=== PATIENT | male | born 1970 | race Caucasian/White ===

== ENCOUNTER 2017-09-09 11:28 | Inpatient (IN) | payer OTHER ==
[2017-09-09 12:25] VITALS: BMI 26.9
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
[2017-09-09] MEDS ORDERED: P-EPHED 60MG/TRIPROLIDI 2.5MG TABLET PO PRN (17:17)
[2017-09-09] MEDS ORDERED: NICOTINE POLACRILEX 2 MG GUM BUC PRN (17:17)
[2017-09-09] MEDS ORDERED: MAG HYDROX/AL HYDROX/SIMETH 30 ML UNIT-DOSE CUP PO PRN (17:17)
[2017-09-09] MEDS ORDERED: MAGNESIUM HYDROX 2400MG/30ML ORAL SUSPENSION 30 ML CUP PO PRN (17:17)
[2017-09-09] MEDS ORDERED: ACETAMINOPHEN 325 MG TABLET (FP) PO PRN (17:17)
[2017-09-09] MEDS ORDERED: LOPERAMIDE HCL 2 MG CAPSULE PO PRN (17:17)
[2017-09-09] MEDS ORDERED: MENTHOL/PHENOL 1 EACH UD MM PRN (17:17)
[2017-09-09] MEDS ORDERED: MAGNESIUM CITRATE 300 ML BOTTLE PO PRN (17:17)
[2017-09-09] MEDS ORDERED: guaiFENesin/D-METHORPHAN HB 10 ML UNIT-DOSE CUPS PO PRN (17:17)
[2017-09-09] MEDS: THIAMINE HCL 100 MG TABLET (FP) PO SCH (21:16)
[2017-09-09] MEDS: hydrOXYzine PAMOATE 50 MG CAPSULE (FP) PO PRN (21:16)
[2017-09-09] MEDS: NICOTINE 14 MG/24 HOURS TOPICAL PATCH TD SCH (21:17)
[2017-09-09] MEDS ORDERED: TUBERCULIN PPD 5 TU/0.1ML VIAL ID ONE (22:42)
[2017-09-09] MEDS: IBUPROFEN 400 MG TABLET (FP) PO PRN (22:42)
[2017-09-09 23:34] LABS: URINE APPEARANCE CLEAR; URINE BILIRUBIN NEGATIVE (NEGATIVE); URINE BLOOD NEGATIVE (NEGATIVE); URINE COLOR YELLOW; URINE GLUCOSE (UA) NEGATIVE (NEGATIVE); URINE KETONE NEGATIVE (NEGATIVE); URINE LEUK ESTERASE TRACE (NEGATIVE); URINE NITRITE NEGATIVE (NEGATIVE); URINE PROTEIN NEGATIVE (NEGATIVE)
[2017-09-09 23:53] LABS: URINE HYALINE CAST 2 /lpf; URINE MUCUS MODERATE
[2017-09-10] MEDS ORDERED: METHADONE HCL 40 MG DISPERSABLE TABLET PO SCH (07:30)
[2017-09-10] MEDS ORDERED: METHADONE HCL 10 MG TABLET ONE (08:12)
[2017-09-10] MEDS ORDERED: METHADONE HCL 40 MG DISPERSABLE TABLET ONE (08:13)
[2017-09-10] MEDS: METHADONE 80 MG, METHADONE 20 MG PO SCH (08:17)
[2017-09-10] MEDS: NICOTINE 14 MG/24 HOURS TOPICAL PATCH TD SCH (09:52)
[2017-09-10] MEDS: PRENATAL VITAMINS W/ FOLIC ACID TABLET (FP) PO SCH (09:53)
[2017-09-10 10:12] LABS: CHLORIDE 106 mmol/L (98-107); POTASSIUM 4.6 mmol/L (3.5-5.1); SODIUM 142 mmol/L (136-145)
[2017-09-10 10:19] LABS: HEMATOCRIT 38.7 % (35.4-49); HEMOGLOBIN 12.4 GM/dL (11.7-16.9); MCH 26.9 pg (25.7-33.7); MCHC 32.1 g/dl (32.0-35.9); MEAN CELL VOLUME 83.7 fl (80-96); MEAN PLT VOLUME 8.9 fl (7.5-11.1); PLATELET COUNT 302 K/MM3 (134-434); RBC 4.62 M/mm3 (4.00-5.60); RDW 13.3 % (11.9-15.9); WHITE BLOOD COUNT 10.5 K/mm3 (4.0-10.0)
[2017-09-10 10:27] LABS: ALBUMIN 3.8 g/dl (3.4-5.0); ALK PHOS 98 U/L (45-117); ANION GAP 11 (8-16); BILIRUBIN,TOTAL 0.5 mg/dL (0.2-1.0); BLOOD UREA NITROGEN 15 mg/dL (7-18); CALCIUM 8.6 mg/dL (8.5-10.1); CO2 25 mmol/L (21-32); GLUCOSE,RANDOM 112 mg/dL (74-106); SGOT/AST 23 U/L (15-37); SGPT/ALT 23 U/L (12-78); TOT PROT 7.3 g/dl (6.4-8.2)
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
[2017-09-10] MEDS ORDERED: GABAPENTIN 100 MG CAPSULE (FP) PO ONE (11:45)
[2017-09-10] MEDS ORDERED: FLU VACCINE QUAD 60 MCG/0.5 ML (MDV 17-18) IM ONE (12:00)
[2017-09-10] MEDS: GABAPENTIN 100 MG CAPSULE (FP) PO SCH ×2 (13:40→21:12)
--- NOTE | 2017-09-10 14:08 | EKG ---
Test Reason : Blood Pressure : / mmHG Vent. Rate : 058 BPM Atrial Rate : 058 BPM P-R Int : 150 ms QRS Dur : 100 ms QT Int : 474 ms P-R-T Axes : 074 077 061 degrees QTc Int : 465 ms SINUS BRADYCARDIA OTHERWISE NORMAL ECG NO PREVIOUS ECGS AVAILABLE Confirmed by MD ERNESTINE, JUSTA ([id number]) on 09/10/2017 2:08:22 PM Referred By: Confirmed By:JUSTA SINHA MD
[2017-09-10] MEDS: ARTIFICIAL TEARS (POLYVINYL ALCOHOL 1.4%) OPTH DROPS OU PRN (16:49)
[2017-09-10] MEDS: AMITRIPTYLINE HCL 25 MG TABLET (FP) PO SCH (21:12)
[2017-09-10] MEDS: THIAMINE HCL 100 MG TABLET (FP) PO SCH (21:12)
[2017-09-11] MEDS ORDERED: METHADONE HCL 10 MG TABLET ONE (03:41)
[2017-09-11] MEDS ORDERED: METHADONE HCL 40 MG DISPERSABLE TABLET ONE (03:41)
[2017-09-11] MEDS: METHADONE 80 MG, METHADONE 20 MG PO SCH (06:26)
[2017-09-11] MEDS: GABAPENTIN 100 MG CAPSULE (FP) PO SCH ×3 (06:26→21:15)
[2017-09-11] MEDS: PRENATAL VITAMINS W/ FOLIC ACID TABLET (FP) PO SCH (10:09)
[2017-09-11] MEDS: ARTIFICIAL TEARS (POLYVINYL ALCOHOL 1.4%) OPTH DROPS OU PRN (10:10)
[2017-09-11] MEDS: NICOTINE 14 MG/24 HOURS TOPICAL PATCH TD SCH (10:10)
[2017-09-11] MEDS: AMITRIPTYLINE HCL 25 MG TABLET (FP) PO SCH (21:15)
[2017-09-11] MEDS: THIAMINE HCL 100 MG TABLET (FP) PO SCH (21:15)
[2017-09-11] MEDS: TETRAHYDROZOLINE HCL 1 DROP DROPS OU PRN (21:16)
[2017-09-12] MEDS ORDERED: METHADONE HCL 10 MG TABLET ONE (03:19)
[2017-09-12] MEDS ORDERED: METHADONE HCL 40 MG DISPERSABLE TABLET ONE (03:20)
[2017-09-12] MEDS: GABAPENTIN 100 MG CAPSULE (FP) PO SCH ×3 (06:50→21:16)
[2017-09-12] MEDS: METHADONE 80 MG, METHADONE 20 MG PO SCH (06:50)
[2017-09-12] MEDS: ARTIFICIAL TEARS (POLYVINYL ALCOHOL 1.4%) OPTH DROPS OU PRN ×2 (09:58→21:16)
[2017-09-12] MEDS: PRENATAL VITAMINS W/ FOLIC ACID TABLET (FP) PO SCH (09:58)
[2017-09-12] MEDS: NICOTINE 14 MG/24 HOURS TOPICAL PATCH TD SCH (09:59)
[2017-09-12] MEDS: hydrOXYzine PAMOATE 50 MG CAPSULE (FP) PO PRN ×3 (11:01→21:16)
--- NOTE | 2017-09-12 11:18 | PN ---
Psychiatric Progress Note Vital Signs: Vital Signs Period Temp Pulse Resp BP Sys/Campos Pulse Ox Last 24 Hr 97.8 F-98.0 F 59-67 16-18 120-127/74-80 Date of Session: 09/12/17 Chief Complaint:: "Anxiety" HPI: Patient is addressing opioid, cocaine, nicotine dependence comorbid substance induced sleep, anxiety and mood disorder. ROS: WNL Current Medications: Active Medications Generic Name Dose Route Start Last Admin Trade Name Freq PRN Reason Stop Dose Admin Acetaminophen 650 mg 09/09/17 17:17 Tylenol - PO Q4H PRN FEVER Al Hydroxide/Mg Hydroxide 30 ml 09/09/17 17:17 Mylanta Oral Suspension - PO Q6H PRN DYSPEPSIA Artificial Tears 1 drop 09/10/17 06:50 09/12/17 09:58 Artificial Tears OU 1 drop BID PRN Administration DRY EYES Eucalyptus/Menthol/Phenol/Sorbitol 1 each 09/09/17 17:17 Cepastat Lozenge - MM Q4H PRN SORE THROAT Gabapentin 100 mg 09/10/17 14:00 09/12/17 06:50 Neurontin - PO 100 mg TID JANNETTE Administration Guaifenesin 10 ml 09/09/17 17:17 Robitussin Dm - PO Q6H PRN COUGH Hydroxyzine Pamoate 50 mg 09/09/17 17:17 09/12/17 11:01 Vistaril - PO 50 mg Q4H PRN Administration AGITATION Ibuprofen 400 mg 09/09/17 17:17 09/09/17 22:42 Motrin - PO 400 mg Q6H PRN Administration Pain level 4-6 Loperamide HCl 4 mg 09/09/17 17:17 Imodium - PO Q6H PRN DIARRHEA Magnesium Citrate 300 ml 09/09/17 17:17 Citroma - PO Q48H PRN CONSTIPATION Magnesium Hydroxide 30 ml 09/09/17 17:17 Milk Of Magnesia - PO DAILY PRN CONSTIPATION Methadone HCl 80 mg/ Methadone 100 mg 09/10/17 08:15 09/12/17 06:50 HCl 20 mg PO 100 mg DAILY@0600 JANNETTE Administration Nicotine 14 mg 09/09/17 17:30 09/12/17 09:59 Nicoderm Patch - TD 14 mg DAILY JANNETTE Administration Nicotine Polacrilex 2 mg 09/09/17 17:17 Nicorette Gum - BUC Q2H PRN NICOTINE REPLACEMENT RX Multivit/Folic Acid/Iron 1 tab 09/10/17 10:00 09/12/17 09:58 Vitamins (Sjr) - PO 1 tab DAILY JANNETTE Administration Pseudoephedrine/Triprolidine 1 combo 09/09/17 17:17 Actifed - PO TID PRN NASAL CONGESTION Tetrahydrozoline HCl 1 drop 09/10/17 22:00 09/11/17 21:16 Visine - OU 1 drop BID PRN Administration DRY EYES Thiamine HCl 100 mg 09/09/17 22:00 09/11/17 21:15 Vitamin B1 - PO 100 mg HS JANNETTE Administration Medication(s) Change(s): d/c elavil Current Side Effect: Yes (seadtion from elavil) Lab tests ordered: No Lab tests reviewed: Yes Provider note:: Patient is visible on the floor, attneds groups, he was seen today, requested to d/c elavil due to sedation in am, and he continue to c/o anxiety during the day, patient was recommended to aproach the staff and ask vistaril as neeed every 4 hr. Patient verbalized understanding, psycheducation provided, will continue to monitor progress. Total face to face time:: 15 Mental Status Exam - Mental Status Exam Alert and Oriented to: Time, Place, Person Cognitive Function: Good Patient Appearance: Well Groomed Mood: Depressed, Sad, Anxious Affect: Appropriate, Mood Congruent Patient Behavior: Appropriate, Cooperative Speech Pattern: Appropriate Voice Loudness: Normal Thought Process: Intact, Goal Oriented Hallucinations: Denies Suicidal Ideation: Denies Homicidal Ideation: Denies Insight/Judgement: Fair Sleep: Fair Appetite: Good Muscle strength/Tone: Normal Gait/Station: Normal Psychiatric Treatment Plan - Problem List (1) Opioid dependence Current Visit: Yes (2) Nicotine dependence Current Visit: Yes (3) Benzodiazepine dependence Current Visit: Yes (4) Substance-induced anxiety disorder Current Visit: Yes (5) Substance induced mood disorder Current Visit: Yes (6) Substance-induced sleep disorder Current Visit: Yes (7) Cocaine dependence Current Visit: Yes (8) Methadone maintenance therapy patient Current Visit: Yes
--- NOTE | 2017-09-12 16:34 | PN ---
[facility] Progress Note (SOAP) Subjective: reports chronic lower back pain, denies and numbness, tingling, incontinence or urinary symptoms Objective: AOx3 self directing No signs and Symptoms of distress Skin : intact Neuro: no deficits noted Musc : + pain on Left Lumbar area, Full ROM, ambualting 09/12/17 18:18 Assessment: 09/12/17 16:34 Lumbago without Sciatica 09/12/17 16:35 Plan: Warm Compress Stretching Start flexeril 5mg QD Increase fluids continue to monitor
[2017-09-12] MEDS: CYCLOBENZAPRINE HCL 5 MG TABLET PO SCH (17:41)
[2017-09-12] MEDS: THIAMINE HCL 100 MG TABLET (FP) PO SCH (21:16)
[2017-09-12] MEDS: IBUPROFEN 400 MG TABLET (FP) PO PRN (22:40)
[2017-09-13] MEDS ORDERED: METHADONE HCL 40 MG DISPERSABLE TABLET ONE (03:24)
[2017-09-13] MEDS ORDERED: METHADONE HCL 10 MG TABLET ONE (03:24)
[2017-09-13] MEDS: METHADONE 80 MG, METHADONE 20 MG PO SCH (06:23)
[2017-09-13] MEDS: GABAPENTIN 100 MG CAPSULE (FP) PO SCH ×3 (06:23→21:17)
[2017-09-13] MEDS: NICOTINE 14 MG/24 HOURS TOPICAL PATCH TD SCH (09:58)
[2017-09-13] MEDS: CYCLOBENZAPRINE HCL 5 MG TABLET PO SCH (09:58)
[2017-09-13] MEDS: PRENATAL VITAMINS W/ FOLIC ACID TABLET (FP) PO SCH (09:58)
[2017-09-13] MEDS: TETRAHYDROZOLINE HCL 1 DROP DROPS OU PRN (10:00)
[2017-09-13] MEDS: hydrOXYzine PAMOATE 50 MG CAPSULE (FP) PO PRN ×3 (10:01→21:18)
[2017-09-13] MEDS: THIAMINE HCL 100 MG TABLET (FP) PO SCH (21:17)
[2017-09-13] MEDS: ARTIFICIAL TEARS (POLYVINYL ALCOHOL 1.4%) OPTH DROPS OU PRN (21:19)
[2017-09-14] MEDS ORDERED: METHADONE HCL 10 MG TABLET ONE (03:15)
[2017-09-14] MEDS ORDERED: METHADONE HCL 40 MG DISPERSABLE TABLET ONE (03:15)
[2017-09-14] MEDS: METHADONE 80 MG, METHADONE 20 MG PO SCH (06:39)
[2017-09-14] MEDS: GABAPENTIN 100 MG CAPSULE (FP) PO SCH ×3 (06:40→21:35)
[2017-09-14] MEDS: NICOTINE 14 MG/24 HOURS TOPICAL PATCH TD SCH (10:11)
[2017-09-14] MEDS: PRENATAL VITAMINS W/ FOLIC ACID TABLET (FP) PO SCH (10:11)
[2017-09-14] MEDS: CYCLOBENZAPRINE HCL 5 MG TABLET PO SCH (10:11)
[2017-09-14] MEDS: ARTIFICIAL TEARS (POLYVINYL ALCOHOL 1.4%) OPTH DROPS OU PRN (10:12)
[2017-09-14] MEDS: hydrOXYzine PAMOATE 50 MG CAPSULE (FP) PO PRN ×3 (10:13→20:09)
[2017-09-14] MEDS: TETRAHYDROZOLINE HCL 1 DROP DROPS OU PRN (17:05)
[2017-09-14] MEDS: THIAMINE HCL 100 MG TABLET (FP) PO SCH (21:35)
[2017-09-15] MEDS: hydrOXYzine PAMOATE 50 MG CAPSULE (FP) PO PRN ×4 (00:10→23:35)
[2017-09-15] MEDS ORDERED: METHADONE HCL 10 MG TABLET ONE (03:07)
[2017-09-15] MEDS ORDERED: METHADONE HCL 40 MG DISPERSABLE TABLET ONE (03:08)
[2017-09-15] MEDS: METHADONE 80 MG, METHADONE 20 MG PO SCH (06:26)
[2017-09-15] MEDS: GABAPENTIN 100 MG CAPSULE (FP) PO SCH ×3 (06:26→21:37)
[2017-09-15] MEDS: ARTIFICIAL TEARS (POLYVINYL ALCOHOL 1.4%) OPTH DROPS OU PRN ×2 (06:31→21:38)
[2017-09-15] MEDS: PRENATAL VITAMINS W/ FOLIC ACID TABLET (FP) PO SCH (10:18)
[2017-09-15] MEDS: CYCLOBENZAPRINE HCL 5 MG TABLET PO SCH (10:18)
[2017-09-15] MEDS: NICOTINE 14 MG/24 HOURS TOPICAL PATCH TD SCH (10:19)
[2017-09-15] MEDS: IBUPROFEN 400 MG TABLET (FP) PO PRN (17:56)
[2017-09-15] MEDS: THIAMINE HCL 100 MG TABLET (FP) PO SCH (21:37)
[2017-09-16] MEDS: IBUPROFEN 400 MG TABLET (FP) PO PRN (00:17)
[2017-09-16] MEDS ORDERED: METHADONE HCL 40 MG DISPERSABLE TABLET ONE (03:12)
[2017-09-16] MEDS ORDERED: METHADONE HCL 10 MG TABLET ONE (03:12)
[2017-09-16] MEDS: METHADONE 80 MG, METHADONE 20 MG PO SCH (06:16)
[2017-09-16] MEDS: GABAPENTIN 100 MG CAPSULE (FP) PO SCH ×3 (06:16→21:23)
[2017-09-16] MEDS: ARTIFICIAL TEARS (POLYVINYL ALCOHOL 1.4%) OPTH DROPS OU PRN ×4 (06:19→21:24)
[2017-09-16] MEDS: PRENATAL VITAMINS W/ FOLIC ACID TABLET (FP) PO SCH (10:26)
[2017-09-16] MEDS: CYCLOBENZAPRINE HCL 5 MG TABLET PO SCH (10:26)
[2017-09-16] MEDS: NICOTINE 14 MG/24 HOURS TOPICAL PATCH TD SCH (10:26)
[2017-09-16] MEDS: hydrOXYzine PAMOATE 50 MG CAPSULE (FP) PO PRN ×3 (10:28→20:25)
[2017-09-16] MEDS ORDERED: AMMONIUM LACTATE 12% LOTION 225 GM BOTTLE TP PRN (11:42)
--- NOTE | 2017-09-16 14:17 | PN ---
Psychiatric Progress Note Vital Signs: Vital Signs Period Temp Pulse Resp BP Sys/Campos Pulse Ox Last 24 Hr 97.9 F 62 16-16 120/71 Date of Session: 09/16/17 Chief Complaint:: "insomnai" HPI: Patient is addressing opioid, cocaine, nicotine dependence comorbid substance induced sleep, anxiety and mood disorder. ROS: wnl Current Medications: Active Medications Generic Name Dose Route Start Last Admin Trade Name Freq PRN Reason Stop Dose Admin Acetaminophen 650 mg 09/09/17 17:17 Tylenol - PO Q4H PRN FEVER Al Hydroxide/Mg Hydroxide 30 ml 09/09/17 17:17 09/15/17 12:04 Mylanta Oral Suspension - PO 30 ml Q6H PRN Administration DYSPEPSIA Artificial Tears 1 drop 09/10/17 06:50 09/16/17 10:27 Artificial Tears OU 1 drop BID PRN Administration DRY EYES Cyclobenzaprine HCl 5 mg 09/12/17 17:15 09/16/17 10:26 Cyclobenzaprine Hcl PO 5 mg DAILY JANNETTE Administration Eucalyptus/Menthol/Phenol/Sorbitol 1 each 09/09/17 17:17 Cepastat Lozenge - MM Q4H PRN SORE THROAT Gabapentin 100 mg 09/10/17 14:00 09/16/17 06:16 Neurontin - PO 100 mg TID JANNETTE Administration Guaifenesin 10 ml 09/09/17 17:17 Robitussin Dm - PO Q6H PRN COUGH Hydroxyzine Pamoate 50 mg 09/09/17 17:17 09/16/17 10:28 Vistaril - PO 50 mg Q4H PRN Administration AGITATION Ibuprofen 400 mg 09/09/17 17:17 09/16/17 00:17 Motrin - PO 400 mg Q6H PRN Administration Pain level 4-6 Lactic Acid 1 applic 09/16/17 11:42 Lac-Hydrin 12 TP BID PRN DRY SKIN Loperamide HCl 4 mg 09/09/17 17:17 Imodium - PO Q6H PRN DIARRHEA Magnesium Citrate 300 ml 09/09/17 17:17 Citroma - PO Q48H PRN CONSTIPATION Magnesium Hydroxide 30 ml 09/09/17 17:17 Milk Of Magnesia - PO DAILY PRN CONSTIPATION Methadone HCl 80 mg/ Methadone 100 mg 09/10/17 08:15 09/16/17 06:16 HCl 20 mg PO 100 mg DAILY@0600 JANNETTE Administration Nicotine 14 mg 09/09/17 17:30 09/16/17 10:26 Nicoderm Patch - TD 14 mg DAILY JANNETTE Administration Nicotine Polacrilex 2 mg 09/09/17 17:17 Nicorette Gum - BUC Q2H PRN NICOTINE REPLACEMENT RX Multivit/Folic Acid/Iron 1 tab 09/10/17 10:00 09/16/17 10:26 Vitamins (Sjr) - PO 1 tab DAILY JANNETTE Administration Pseudoephedrine/Triprolidine 1 combo 09/09/17 17:17 Actifed - PO TID PRN NASAL CONGESTION Tetrahydrozoline HCl 1 drop 09/10/17 22:00 09/14/17 17:05 Visine - OU 1 drop BID PRN Administration DRY EYES Thiamine HCl 100 mg 09/09/17 22:00 09/15/17 21:37 Vitamin B1 - PO 100 mg HS JANNETTE Administration Current Side Effect: No Lab tests ordered: No Lab tests reviewed: Yes Provider note:: Patient reports has a difficult time to fall and maintain sleep , next day he fatiqued and tired and unable to functiong well in groups, discussed indications and properties of Belsomra, patient agreed to start, will add Belsomra and continue monitor progress. Total face to face time:: 20 Mental Status Exam - Mental Status Exam Alert and Oriented to: Time, Place, Person Cognitive Function: Good Patient Appearance: Well Groomed Mood: Anxious Affect: Appropriate Patient Behavior: Appropriate, Cooperative Speech Pattern: Clear, Appropriate Voice Loudness: Normal Thought Process: Intact, Goal Oriented Thought Disorder: Not Present Hallucinations: Denies Suicidal Ideation: Denies Homicidal Ideation: Denies Insight/Judgement: Fair Sleep: Poorly, Difficulty falling asleep Appetite: Fair Muscle strength/Tone: Normal Gait/Station: Normal Psychiatric Treatment Plan - Problem List (1) Opioid dependence Current Visit: Yes (2) Nicotine dependence Current Visit: Yes (3) Benzodiazepine dependence Current Visit: Yes (4) Substance-induced anxiety disorder Current Visit: Yes (5) Substance induced mood disorder Current Visit: Yes (6) Substance-induced sleep disorder Current Visit: Yes (7) Cocaine dependence Current Visit: Yes (8) Methadone maintenance therapy patient Current Visit: Yes
[2017-09-16] MEDS: SUVOREXANT 10 MG TABLET PO PRN (21:23)
[2017-09-16] MEDS: THIAMINE HCL 100 MG TABLET (FP) PO SCH (21:23)
[2017-09-17] MEDS ORDERED: METHADONE HCL 40 MG DISPERSABLE TABLET ONE (03:57)
[2017-09-17] MEDS ORDERED: METHADONE HCL 10 MG TABLET ONE (03:57)
[2017-09-17] MEDS: METHADONE 80 MG, METHADONE 20 MG PO SCH (06:11)
[2017-09-17] MEDS: GABAPENTIN 100 MG CAPSULE (FP) PO SCH ×3 (06:12→21:10)
[2017-09-17] MEDS: CYCLOBENZAPRINE HCL 5 MG TABLET PO SCH (10:25)
[2017-09-17] MEDS: NICOTINE 14 MG/24 HOURS TOPICAL PATCH TD SCH (10:25)
[2017-09-17] MEDS: PRENATAL VITAMINS W/ FOLIC ACID TABLET (FP) PO SCH (10:25)
[2017-09-17] MEDS: ARTIFICIAL TEARS (POLYVINYL ALCOHOL 1.4%) OPTH DROPS OU PRN ×2 (10:25→21:10)
[2017-09-17] MEDS: hydrOXYzine PAMOATE 50 MG CAPSULE (FP) PO PRN ×2 (10:28→14:33)
[2017-09-17] MEDS: IBUPROFEN 400 MG TABLET (FP) PO PRN (14:34)
[2017-09-17] MEDS: THIAMINE HCL 100 MG TABLET (FP) PO SCH (21:10)
[2017-09-17] MEDS: SUVOREXANT 10 MG TABLET PO PRN (21:12)
[2017-09-18] MEDS: IBUPROFEN 400 MG TABLET (FP) PO PRN ×2 (01:12→10:04)
[2017-09-18] MEDS: hydrOXYzine PAMOATE 50 MG CAPSULE (FP) PO PRN ×2 (01:12→14:28)
[2017-09-18] MEDS ORDERED: METHADONE HCL 10 MG TABLET ONE (05:47)
[2017-09-18] MEDS ORDERED: METHADONE HCL 40 MG DISPERSABLE TABLET ONE (05:48)
[2017-09-18] MEDS: METHADONE 80 MG, METHADONE 20 MG PO SCH (06:16)
[2017-09-18] MEDS: GABAPENTIN 100 MG CAPSULE (FP) PO SCH ×3 (06:16→21:20)
[2017-09-18] MEDS: ARTIFICIAL TEARS (POLYVINYL ALCOHOL 1.4%) OPTH DROPS OU PRN ×2 (10:03→21:23)
[2017-09-18] MEDS: PRENATAL VITAMINS W/ FOLIC ACID TABLET (FP) PO SCH (10:03)
[2017-09-18] MEDS: CYCLOBENZAPRINE HCL 5 MG TABLET PO SCH (10:04)
[2017-09-18] MEDS: NICOTINE 14 MG/24 HOURS TOPICAL PATCH TD SCH (10:04)
[2017-09-18] MEDS: THIAMINE HCL 100 MG TABLET (FP) PO SCH (21:20)
[2017-09-18] MEDS: SUVOREXANT 10 MG TABLET PO PRN (21:22)
[2017-09-18] MEDS: TOLNAFTATE 1% CREAM 15 GM TUBE TP SCH (21:22)
[2017-09-19] MEDS: hydrOXYzine PAMOATE 50 MG CAPSULE (FP) PO PRN ×2 (02:35→13:56)
[2017-09-19] MEDS ORDERED: METHADONE HCL 40 MG DISPERSABLE TABLET ONE (03:13)
[2017-09-19] MEDS ORDERED: METHADONE HCL 10 MG TABLET ONE (03:13)
[2017-09-19] MEDS: METHADONE 80 MG, METHADONE 20 MG PO SCH (06:14)
[2017-09-19] MEDS: GABAPENTIN 100 MG CAPSULE (FP) PO SCH ×3 (06:14→21:21)
[2017-09-19] MEDS: ARTIFICIAL TEARS (POLYVINYL ALCOHOL 1.4%) OPTH DROPS OU PRN ×2 (10:02→13:57)
[2017-09-19] MEDS: PRENATAL VITAMINS W/ FOLIC ACID TABLET (FP) PO SCH (10:02)
[2017-09-19] MEDS: NICOTINE 14 MG/24 HOURS TOPICAL PATCH TD SCH (10:03)
[2017-09-19] MEDS: TOLNAFTATE 1% CREAM 15 GM TUBE TP SCH ×2 (10:03→21:21)
[2017-09-19] MEDS: CYCLOBENZAPRINE HCL 5 MG TABLET PO SCH (10:05)
[2017-09-19] MEDS: THIAMINE HCL 100 MG TABLET (FP) PO SCH (21:21)
[2017-09-19] MEDS: SUVOREXANT 10 MG TABLET PO PRN (21:22)
[2017-09-20] MEDS: hydrOXYzine PAMOATE 50 MG CAPSULE (FP) PO PRN ×4 (00:10→21:20)
[2017-09-20] MEDS: IBUPROFEN 400 MG TABLET (FP) PO PRN (00:10)
[2017-09-20] MEDS ORDERED: METHADONE HCL 40 MG DISPERSABLE TABLET ONE (03:15)
[2017-09-20] MEDS ORDERED: METHADONE HCL 10 MG TABLET ONE (03:15)
[2017-09-20] MEDS: GABAPENTIN 100 MG CAPSULE (FP) PO SCH ×3 (06:16→21:19)
[2017-09-20] MEDS: METHADONE 80 MG, METHADONE 20 MG PO SCH (06:16)
[2017-09-20] MEDS: NICOTINE 14 MG/24 HOURS TOPICAL PATCH TD SCH (10:06)
[2017-09-20] MEDS: PRENATAL VITAMINS W/ FOLIC ACID TABLET (FP) PO SCH (10:07)
[2017-09-20] MEDS: TOLNAFTATE 1% CREAM 15 GM TUBE TP SCH ×2 (10:07→21:20)
[2017-09-20] MEDS: ARTIFICIAL TEARS (POLYVINYL ALCOHOL 1.4%) OPTH DROPS OU PRN (10:08)
[2017-09-20] MEDS: CYCLOBENZAPRINE HCL 5 MG TABLET PO SCH (10:11)
[2017-09-20] MEDS: THIAMINE HCL 100 MG TABLET (FP) PO SCH (21:19)
[2017-09-20] MEDS: TETRAHYDROZOLINE HCL 1 DROP DROPS OU PRN (21:20)
[2017-09-21] MEDS ORDERED: METHADONE HCL 10 MG TABLET ONE (05:06)
[2017-09-21] MEDS ORDERED: METHADONE HCL 40 MG DISPERSABLE TABLET ONE (05:06)
[2017-09-21] MEDS: GABAPENTIN 100 MG CAPSULE (FP) PO SCH ×3 (06:16→21:13)
[2017-09-21] MEDS: METHADONE 80 MG, METHADONE 20 MG PO SCH (06:16)
[2017-09-21] MEDS: IBUPROFEN 400 MG TABLET (FP) PO PRN (07:39)
[2017-09-21] MEDS: ARTIFICIAL TEARS (POLYVINYL ALCOHOL 1.4%) OPTH DROPS OU PRN (07:44)
[2017-09-21] MEDS: TETRAHYDROZOLINE HCL 1 DROP DROPS OU PRN ×2 (10:04→21:13)
[2017-09-21] MEDS: PRENATAL VITAMINS W/ FOLIC ACID TABLET (FP) PO SCH (10:05)
[2017-09-21] MEDS: NICOTINE 14 MG/24 HOURS TOPICAL PATCH TD SCH (10:05)
[2017-09-21] MEDS: TOLNAFTATE 1% CREAM 15 GM TUBE TP SCH ×2 (10:06→21:52)
[2017-09-21] MEDS: hydrOXYzine PAMOATE 50 MG CAPSULE (FP) PO PRN ×2 (10:08→21:15)
[2017-09-21] MEDS: CYCLOBENZAPRINE HCL 5 MG TABLET PO SCH (10:10)
[2017-09-21] MEDS: THIAMINE HCL 100 MG TABLET (FP) PO SCH (21:13)
[2017-09-22] MEDS ORDERED: METHADONE HCL 10 MG TABLET ONE (05:29)
[2017-09-22] MEDS ORDERED: METHADONE HCL 40 MG DISPERSABLE TABLET ONE (05:29)
[2017-09-22] MEDS: METHADONE 80 MG, METHADONE 20 MG PO SCH (06:10)
[2017-09-22] MEDS: GABAPENTIN 100 MG CAPSULE (FP) PO SCH ×3 (06:10→21:15)
[2017-09-22] MEDS: NICOTINE 14 MG/24 HOURS TOPICAL PATCH TD SCH (09:37)
[2017-09-22] MEDS: CYCLOBENZAPRINE HCL 5 MG TABLET PO SCH (09:37)
[2017-09-22] MEDS: PRENATAL VITAMINS W/ FOLIC ACID TABLET (FP) PO SCH (09:37)
[2017-09-22] MEDS: IBUPROFEN 400 MG TABLET (FP) PO PRN (09:38)
[2017-09-22] MEDS: TOLNAFTATE 1% CREAM 15 GM TUBE TP SCH ×2 (09:39→21:17)
[2017-09-22] MEDS: hydrOXYzine PAMOATE 50 MG CAPSULE (FP) PO PRN ×2 (14:00→21:16)
[2017-09-22] MEDS: THIAMINE HCL 100 MG TABLET (FP) PO SCH (21:15)
[2017-09-22] MEDS: ARTIFICIAL TEARS (POLYVINYL ALCOHOL 1.4%) OPTH DROPS OU PRN (21:17)
[2017-09-23] MEDS ORDERED: METHADONE HCL 10 MG TABLET ONE (03:11)
[2017-09-23] MEDS ORDERED: METHADONE HCL 40 MG DISPERSABLE TABLET ONE (03:12)
[2017-09-23] MEDS: GABAPENTIN 100 MG CAPSULE (FP) PO SCH (06:23)
[2017-09-23] MEDS: METHADONE 80 MG, METHADONE 20 MG PO SCH (06:23)
[2017-09-23 06:49] VITALS: BP 121/75; PULSE 65; TEMP 97.9
[2017-09-23] MEDS: TOLNAFTATE 1% CREAM 15 GM TUBE TP SCH (10:12)
[2017-09-23] MEDS: NICOTINE 14 MG/24 HOURS TOPICAL PATCH TD SCH (10:12)
[2017-09-23] MEDS: PRENATAL VITAMINS W/ FOLIC ACID TABLET (FP) PO SCH (10:12)
[2017-09-23] MEDS: ARTIFICIAL TEARS (POLYVINYL ALCOHOL 1.4%) OPTH DROPS OU PRN (10:13)
[2017-09-23] MEDS: CYCLOBENZAPRINE HCL 5 MG TABLET PO SCH (10:15)
--- NOTE | 2017-09-23 10:46 | PN ---
Psychiatric Progress Note Vital Signs: Vital Signs Period Temp Pulse Resp BP Sys/Campos Pulse Ox Last 24 Hr 97.9 F 65 16-16 121/75 Date of Session: 09/23/17 Chief Complaint:: discharge visit HPI: Patient has addressed opioid, benzo, nicotine dependence comorbid substance induced sleep, anxiety and mood disorder. ROS: WNL Current Medications: Active Medications Generic Name Dose Route Start Last Admin Trade Name Freq PRN Reason Stop Dose Admin Acetaminophen 650 mg 09/09/17 17:17 Tylenol - PO Q4H PRN FEVER Al Hydroxide/Mg Hydroxide 30 ml 09/09/17 17:17 09/15/17 12:04 Mylanta Oral Suspension - PO 30 ml Q6H PRN Administration DYSPEPSIA Artificial Tears 1 drop 09/10/17 06:50 09/23/17 10:13 Artificial Tears OU 1 drop BID PRN Administration DRY EYES Cyclobenzaprine HCl 5 mg 09/12/17 17:15 09/23/17 10:15 Cyclobenzaprine Hcl PO 5 mg DAILY JANNETTE Administration Eucalyptus/Menthol/Phenol/Sorbitol 1 each 09/09/17 17:17 Cepastat Lozenge - MM Q4H PRN SORE THROAT Gabapentin 100 mg 09/10/17 14:00 09/23/17 06:23 Neurontin - PO 100 mg TID JANNETTE Administration Guaifenesin 10 ml 09/09/17 17:17 Robitussin Dm - PO Q6H PRN COUGH Hydroxyzine Pamoate 50 mg 09/09/17 17:17 09/22/17 21:16 Vistaril - PO 50 mg Q4H PRN Administration AGITATION Ibuprofen 400 mg 09/09/17 17:17 09/22/17 09:38 Motrin - PO 400 mg Q6H PRN Administration Pain level 4-6 Lactic Acid 1 applic 09/16/17 11:42 Lac-Hydrin 12 TP BID PRN DRY SKIN Loperamide HCl 4 mg 09/09/17 17:17 Imodium - PO Q6H PRN DIARRHEA Magnesium Citrate 300 ml 09/09/17 17:17 Citroma - PO Q48H PRN CONSTIPATION Magnesium Hydroxide 30 ml 09/09/17 17:17 Milk Of Magnesia - PO DAILY PRN CONSTIPATION Methadone HCl 80 mg/ Methadone 100 mg 09/18/17 06:00 09/23/17 06:23 HCl 20 mg PO 02/13/18 05:59 100 mg DAILY@0600 JANNETTE Administration Nicotine 14 mg 09/09/17 17:30 09/23/17 10:12 Nicoderm Patch - TD 14 mg DAILY JANNETTE Administration Nicotine Polacrilex 2 mg 09/09/17 17:17 Nicorette Gum - BUC Q2H PRN NICOTINE REPLACEMENT RX Multivit/Folic Acid/Iron 1 tab 09/10/17 10:00 09/23/17 10:12 Vitamins (Sjr) - PO 1 tab DAILY JANNETTE Administration Pseudoephedrine/Triprolidine 1 combo 09/09/17 17:17 Actifed - PO TID PRN NASAL CONGESTION Tetrahydrozoline HCl 1 drop 09/10/17 22:00 09/21/17 21:13 Visine - OU 1 drop BID PRN Administration DRY EYES Thiamine HCl 100 mg 09/09/17 22:00 09/22/17 21:15 Vitamin B1 - PO 100 mg HS JANNETTE Administration Tolnaftate 1 applic 09/18/17 22:00 09/23/17 10:12 Tinactin 1% Cream - TP 1 applic BID JANNETTE Administration Current Side Effect: No Lab tests ordered: No Lab tests reviewed: Yes Provider note:: Patient has completed today his treatment and met his goals, will continue to address his issues at [facility]. Patient reports has been feeling much better, he is less anxious, his sleeps better. Patient focused on importance to continue maintain abstinence, utilizaion all supports available to porevent relapses, patient was enouraged to use alterantive ways to prevent relapses, script for Gabapentin for 30 days e-transferred to [place] pharmacy, he is stable for discharge today. Total face to face time:: 20 Mental Status Exam - Mental Status Exam Alert and Oriented to: Time, Place, Person Cognitive Function: Good Patient Appearance: Well Groomed Mood: Hopeful Affect: Appropriate Patient Behavior: Appropriate, Cooperative Speech Pattern: Clear, Appropriate Voice Loudness: Normal Thought Process: Intact Thought Disorder: Not Present Hallucinations: Denies Suicidal Ideation: Denies Homicidal Ideation: Denies Insight/Judgement: Fair Sleep: Well Appetite: Good Muscle strength/Tone: Normal Gait/Station: Normal
== END 2017-09-23 11:00 | disposition home or self-care (01) | DRG 772 ==
LOC: YASAS 11:28 → Y5N 18:08
PROVIDERS: ADMIT Psychiatry & Neurology Psychiatry; ATTEND Psychiatry & Neurology Psychiatry
PROC: HZ42ZZZ Group Counseling for Substance Abuse Treatment, Cognitive-Behavioral (ICD-10-PCS; principal; 2017-09-09)
DX: F11.20 Opioid dependence, uncomplicated (principal); F13.20 Sedative, hypnotic or anxiolytic dependence, uncomplicated; F14.20 Cocaine dependence, uncomplicated; F17.210 Nicotine dependence, cigarettes, uncomplicated; F19.24 Other psychoactive substance dependence with psychoactive substance-induced mood disorder; F19.280 Other psychoactive substance dependence with psychoactive substance-induced anxiety disorder; F19.282 Other psychoactive substance dependence with psychoactive substance-induced sleep disorder; F32.9 Major depressive disorder, single episode, unspecified; M54.5 Low back pain; R76.11 Nonspecific reaction to tuberculin skin test without active tuberculosis
CPT/HCPCS: 36415; 71046-TC-FY; 80053; 81003; 81015; 85027; 86593; 87389; 90688; 93005; 93010

== ENCOUNTER 2021-05-05 11:59 | Inpatient (IN) | payer OTHER ==
[2021-05-05 14:07] VITALS: BMI 25.7
[2021-05-05] MEDS ORDERED: ONDANSETRON *ODT* 4 MG TABLET SL PRN (14:44)
[2021-05-05] MEDS ORDERED: IBUPROFEN 400 MG TABLET (FP) PO PRN (14:44)
[2021-05-05] MEDS ORDERED: MENTHOL/PHENOL 1 EACH UD MM PRN (14:44)
[2021-05-05] MEDS ORDERED: NICOTINE 10 MG CARTRIDGE (INHALER) IH PRN (14:44)
[2021-05-05] MEDS ORDERED: ACETAMINOPHEN 325 MG TABLET (FP) PO PRN ×2 (14:44)
[2021-05-05] MEDS ORDERED: NICOTINE 14 MG/24 HOURS TOPICAL PATCH TD PRN (14:44)
[2021-05-05] MEDS ORDERED: MAG HYDROX/AL HYDROX/SIMETH 30 ML UNIT-DOSE CUP PO PRN (14:44)
[2021-05-05] MEDS ORDERED: LORazepam 1 MG TABLET PO PRN (14:44)
[2021-05-05] MEDS ORDERED: MAGNESIUM CITRATE 300 ML BOTTLE PO PRN (14:44)
[2021-05-05] MEDS ORDERED: MAGNESIUM HYDROX 2400MG/30ML ORAL SUSPENSION 30 ML CUP PO PRN (14:44)
[2021-05-05] MEDS ORDERED: BISMUTH SUBSALICYLATE 524 MG/30 ML PO PRN (14:44)
[2021-05-05] MEDS: hydrOXYzine PAMOATE 25 MG CAPSULE (FP) PO SCH ×2 (17:41→22:27)
[2021-05-05] MEDS: LORazepam 2 MG TABLET PO SCH (22:27)
[2021-05-05] MEDS: MELATONIN 5 MG TABLETS PO SCH (22:27)
[2021-05-05] MEDS: THIAMINE HCL 100 MG TABLET (FP) PO SCH (22:27)
[2021-05-06] MEDS: LORazepam 2 MG TABLET PO SCH ×4 (05:24→23:16)
[2021-05-06] MEDS: hydrOXYzine PAMOATE 25 MG CAPSULE (FP) PO SCH (05:24)
[2021-05-06] MEDS ORDERED: methaDONE HCL 10 MG TABLET PO SCH (09:15)
[2021-05-06] MEDS ORDERED: methaDONE HCL 10 MG TABLET ONE (09:52)
[2021-05-06] MEDS ORDERED: methaDONE HCL 40 MG DISPERSABLE TABLET ONE (09:53)
[2021-05-06] MEDS: methaDONE 80 MG, methaDONE 20 MG PO SCH (10:29)
[2021-05-06] MEDS: METHOCARBAMOL 500 MG TABLET PO PRN (10:31)
[2021-05-06 14:39] LABS: HEMATOCRIT 38.9 % (35.4-49); HEMOGLOBIN 12.8 GM/dL (11.7-16.9); MCH 28.4 pg (25.7-33.7); MCHC 32.8 g/dl (32.0-35.9); MEAN CELL VOLUME 86.8 fl (80-96); PLATELET COUNT 320 10^3/uL (134-434); RBC 4.49 M/mm3 (4.00-5.60); RDW 13.8 % (11.9-15.9); WHITE BLOOD COUNT 7.8 K/mm3 (4.0-10.0)
[2021-05-06 14:47] LABS: ALBUMIN 2.9 g/dl (3.4-5.0); BLOOD UREA NITROGEN 16.3 mg/dL (7-18); CALCIUM 8.7 mg/dL (8.5-10.1)
[2021-05-06 14:50] LABS: CREATININE 0.9 mg/dL (0.55-1.3)
[2021-05-06 14:52] LABS: BILIRUBIN,TOTAL 0.6 mg/dL (0.2-1); TOT PROT 6.1 g/dl (6.4-8.2)
[2021-05-06] MEDS: MELATONIN 5 MG TABLETS PO SCH (23:16)
[2021-05-06] MEDS: THIAMINE HCL 100 MG TABLET (FP) PO SCH (23:16)
[2021-05-07] MEDS ORDERED: methaDONE HCL 40 MG DISPERSABLE TABLET ONE (04:40)
[2021-05-07] MEDS ORDERED: methaDONE HCL 10 MG TABLET ONE (04:40)
[2021-05-07] MEDS: methaDONE 80 MG, methaDONE 20 MG PO SCH (05:21)
[2021-05-07] MEDS: LORazepam 1 MG TABLET PO SCH ×4 (05:22→22:51)
[2021-05-07] MEDS: METHOCARBAMOL 500 MG TABLET PO PRN (16:58)
[2021-05-07] MEDS: THIAMINE HCL 100 MG TABLET (FP) PO SCH (22:51)
[2021-05-07] MEDS: MELATONIN 5 MG TABLETS PO SCH (22:51)
[2021-05-08] MEDS ORDERED: LORazepam 0.5 MG TABLET PO PRN
[2021-05-08] MEDS: LORazepam 0.5 MG TABLET PO SCH ×4 (05:41→22:30)
[2021-05-08] MEDS: methaDONE 80 MG, methaDONE 20 MG PO SCH (05:43)
[2021-05-08] MEDS ORDERED: methaDONE HCL 10 MG TABLET ONE (05:43)
[2021-05-08] MEDS ORDERED: methaDONE HCL 40 MG DISPERSABLE TABLET ONE (05:43)
[2021-05-08] MEDS: CEPHALEXIN MONOHYDRATE 500 MG CAPSULE (UD) PO SCH ×3 (13:23→23:01)
[2021-05-08] MEDS: THIAMINE HCL 100 MG TABLET (FP) PO SCH (22:30)
[2021-05-08] MEDS: MELATONIN 5 MG TABLETS PO SCH (22:30)
[2021-05-08] MEDS: METHOCARBAMOL 500 MG TABLET PO PRN (22:31)
[2021-05-09] MEDS ORDERED: methaDONE HCL 10 MG TABLET ONE (04:47)
[2021-05-09] MEDS ORDERED: methaDONE HCL 40 MG DISPERSABLE TABLET ONE (04:48)
[2021-05-09] MEDS ORDERED: LORazepam 0.5 MG TABLET PO ONE (05:00)
[2021-05-09] MEDS: CEPHALEXIN MONOHYDRATE 500 MG CAPSULE (UD) PO SCH (05:28)
[2021-05-09] MEDS: methaDONE 80 MG, methaDONE 20 MG PO SCH (05:28)
[2021-05-09 08:43] VITALS: BP 124/70; PULSE 82; TEMP 96.9
== END 2021-05-09 09:54 | disposition other institution (70) | DRG 773 ==
LOC: YASAS 11:59 → Y3N 16:07
PROVIDERS: ADMIT Allergy & Immunology; ATTEND Allergy & Immunology
PROC: HZ2ZZZZ Detoxification Services for Substance Abuse Treatment (ICD-10-PCS; principal; 2021-05-05)
DX: F10.230 Alcohol dependence with withdrawal, uncomplicated (principal); F11.20 Opioid dependence, uncomplicated; F13.20 Sedative, hypnotic or anxiolytic dependence, uncomplicated; F14.20 Cocaine dependence, uncomplicated; F12.20 Cannabis dependence, uncomplicated; F17.210 Nicotine dependence, cigarettes, uncomplicated; F19.24 Other psychoactive substance dependence with psychoactive substance-induced mood disorder; F41.9 Anxiety disorder, unspecified; G47.00 Insomnia, unspecified; L03.116 Cellulitis of left lower limb; M54.5 Low back pain; G89.29 Other chronic pain; Z63.4 Disappearance and death of family member; Z86.11 Personal history of tuberculosis; Z99.89 Dependence on other enabling machines and devices; Z56.0 Unemployment, unspecified; Z59.0 Homelessness
CPT/HCPCS: 36415; 71046-TC-FY; 80053; 82962; 85027; 86780; C9803; U0003; U0005

== ENCOUNTER 2021-05-10 15:09 | Inpatient (IN) | payer OTHER ==
[2021-05-10 17:20] VITALS: BMI 25.8
[2021-05-10] MEDS ORDERED: ACETAMINOPHEN 325 MG TABLET (FP) PO PRN (20:26)
[2021-05-10] MEDS ORDERED: MAGNESIUM HYDROX 2400MG/30ML ORAL SUSPENSION 30 ML CUP PO PRN (20:26)
[2021-05-10] MEDS ORDERED: guaiFENesin 200 MG/10 ML 10 ML UNIT-DOSE CUPS PO PRN (20:26)
[2021-05-10] MEDS ORDERED: P-EPHED 60MG/TRIPROLIDI 2.5MG TABLET PO PRN (20:26)
[2021-05-10] MEDS ORDERED: MAG HYDROX/AL HYDROX/SIMETH 30 ML UNIT-DOSE CUP PO PRN (20:26)
[2021-05-10] MEDS ORDERED: MAGNESIUM CITRATE 300 ML BOTTLE PO PRN (20:26)
[2021-05-10] MEDS ORDERED: LOPERAMIDE HCL 2 MG CAPSULE PO PRN (20:26)
[2021-05-10] MEDS ORDERED: IBUPROFEN 400 MG TABLET (FP) PO PRN (20:26)
[2021-05-10] MEDS ORDERED: THIAMINE HCL 100 MG TABLET (FP) PO SCH (22:00)
[2021-05-10] MEDS ORDERED: MELATONIN 5 MG TABLETS PO SCH (22:00)
[2021-05-10] MEDS: CEPHALEXIN MONOHYDRATE 500 MG CAPSULE (UD) PO SCH (22:33)
[2021-05-10 23:13] VITALS: TEMP 97.3
[2021-05-11] MEDS: CEPHALEXIN MONOHYDRATE 500 MG CAPSULE (UD) PO SCH ×2 (04:00→09:40)
[2021-05-11] MEDS ORDERED: methaDONE HCL 10 MG TABLET PO ONE (07:53)
[2021-05-11 08:14] LABS: HEMATOCRIT 36.9 % (35.4-49); HEMOGLOBIN 12.1 GM/dL (11.7-16.9); MCH 28.2 pg (25.7-33.7); MCHC 32.8 g/dl (32.0-35.9); MEAN CELL VOLUME 86.1 fl (80-96); MEAN PLT VOLUME 7.9 fl (7.5-11.1); PLATELET COUNT 425 10^3/uL (134-434); RBC 4.28 M/mm3 (4.00-5.60); RDW 13.3 % (11.9-15.9); WHITE BLOOD COUNT 12.5 K/mm3 (4.0-10.0)
[2021-05-11 08:21] LABS: ALBUMIN 2.9 g/dl (3.4-5.0); CALCIUM 8.9 mg/dL (8.5-10.1)
[2021-05-11 08:22] LABS: BLOOD UREA NITROGEN 17.8 mg/dL (7-18)
[2021-05-11 08:24] LABS: CREATININE 0.7 mg/dL (0.55-1.3)
[2021-05-11 08:26] LABS: BILIRUBIN,TOTAL 1.1 mg/dL (0.2-1); TOT PROT 6.6 g/dl (6.4-8.2)
[2021-05-11] MEDS ORDERED: methaDONE HCL 40 MG DISPERSABLE TABLET ONE (09:08)
[2021-05-11] MEDS ORDERED: methaDONE HCL 10 MG TABLET ONE (09:08)
[2021-05-11 09:12] VITALS: BP 102/63; PULSE 66
[2021-05-11] MEDS ORDERED: PRENATAL VITAMINS W/ FOLIC ACID TABLET (FP) PO SCH (10:00)
[2021-05-11] MEDS ORDERED: NICOTINE 14 MG/24 HOURS TOPICAL PATCH TD SCH (10:00)
[2021-05-11] MEDS ORDERED: CEPHALEXIN MONOHYDRATE 500 MG CAPSULE (UD) PO SCH (10:45)
[2021-05-11 14:02] LABS: EPI CELLS 6 /uL (0-25.1); HYALINE CASTS 2 /uL (0-3.1); URINE APPEARANCE CLEAR; URINE BACTERIA 38 /uL (0-1359); URINE BILIRUBIN NEGATIVE (NEGATIVE); URINE COLOR DK YELLOW; URINE GLUCOSE (UA) NEGATIVE (NEGATIVE); URINE KETONE NEGATIVE (NEGATIVE); URINE LEUK ESTERASE NEGATIVE (NEGATIVE); URINE NITRITE NEGATIVE (NEGATIVE); URINE PROTEIN 1+ (NEGATIVE); URINE WBC 29 /uL (0-25.8)
[2021-05-11 23:21] LABS: URINE RBC 43.9 /uL (0-23.9)
[2021-05-11 23:40] LABS: YEAST NONE SEEN (NEGATIVE)
[2021-05-12] MEDS ORDERED: methaDONE HCL 10 MG TABLET PO SCH (06:00)
== END 2021-05-11 13:46 | disposition left against medical advice (07) | DRG 770 ==
LOC: YASAS 15:09 → Y3E 20:49
PROVIDERS: ADMIT Allergy & Immunology; ATTEND Allergy & Immunology
PROC: HZ42ZZZ Group Counseling for Substance Abuse Treatment, Cognitive-Behavioral (ICD-10-PCS; principal; 2021-05-10)
DX: F11.20 Opioid dependence, uncomplicated (principal); F17.210 Nicotine dependence, cigarettes, uncomplicated; M41.9 Scoliosis, unspecified; M54.40 Lumbago with sciatica, unspecified side; R26.2 Difficulty in walking, not elsewhere classified; Z99.89 Dependence on other enabling machines and devices; Z86.19 Personal history of other infectious and parasitic diseases; Z86.11 Personal history of tuberculosis; Z56.0 Unemployment, unspecified
CPT/HCPCS: 36415; 80053; 81003; 85027; 86780